=== PATIENT | female | born 1990 | race Caucasian/White ===

== ENCOUNTER 2017-10-16 11:01 | Emergency (ER) | payer SELFPAY ==
[~2017-10-16] VITALS: Ht 157.5 cm; Wt 65.0 kg
[2017-10-16] MEDS ORDERED: SODIUM CHLORIDE 0.9% 1,000 ML IV ONE (12:15)
[2017-10-16 14:18] VITALS: BP 109/63
== END 2017-10-16 14:19 | disposition home or self-care (01) ==
LOC: ER 11:14
DX: H57.13 Ocular pain, bilateral (principal)
CPT/HCPCS: 99284; J7030